=== PATIENT | male | born 1975 | race Caucasian/White ===

== ENCOUNTER → 2021-07-17 | Outpatient (CLI) | payer MEDICARE, OTHER ==
[2021-07-17 14:47] LABS: HEMOGLOBIN 14.4 gm/dl (14.0-17.5); RED BLOOD COUNT 4.53 M/UL (4.20-5.50); WHITE BLOOD COUNT 7.1 K/UL (4.5-11.0)
[2021-07-18 07:12] LABS: A/G RATIO 1.2 (1.2-2.2); BILIRUBIN, TOTAL 0.3 mg/dL (0.0-1.2); CALCIUM, SERUM 8.9 mg/dL (8.7-10.2); CREATININE, SERUM 1.3 mg/dL (0.76-1.27); GLOBULIN, TOTAL 3.3 g/dL (1.5-4.5); POTASSIUM, SERUM 4.1 mmol/L (3.5-5.2); PROTEIN, TOTAL, SERUM 7.4 g/dL (6.0-8.5)
[2021-07-18 08:15] LABS: TSH 1.32 uIU/mL (0.450-4.500)
== END ==
LOC: LAB 13:45
PROVIDERS: Family Medicine
DX: E55.9 Vitamin D deficiency, unspecified (principal); E03.9 Hypothyroidism, unspecified; S20.02XA Contusion of left breast, initial encounter; S22.42XA Multiple fractures of ribs, left side, initial encounter for closed fracture
CPT/HCPCS: 36415; 71101; 80053; 84443; 85025

== ENCOUNTER → 2021-12-29 | Outpatient (CLI) | payer MEDICARE, OTHER ==
[2021-12-29 10:41] LABS: RED BLOOD COUNT 3.78 M/UL (4.20-5.50)
== END ==
LOC: LAB 10:06
PROVIDERS: Family Medicine
DX: E03.9 Hypothyroidism, unspecified (principal); M10.9 Gout, unspecified
CPT/HCPCS: 36415; 80053; 84443; 84550; 85025

== ENCOUNTER 2022-01-27 19:45 | Inpatient (IN) | payer MEDICARE, OTHER ==
[~2022-01-27] VITALS: Ht 154.9 cm; Wt 74.8 kg
[2022-01-27 20:25] LABS: HEMOGLOBIN 12.5 gm/dl (14.0-17.5); RED BLOOD COUNT 3.9 M/UL (4.20-5.50)
[2022-01-28 04:35] LABS: HEMOGLOBIN 11.3 gm/dl (14.0-17.5); RED BLOOD COUNT 3.53 M/UL (4.20-5.50)
[2022-01-28 04:38] LABS: WHITE BLOOD COUNT 21.9 K/UL (4.5-11.0)
[2022-01-28] MEDS ORDERED: ASPIRIN EC81 MG PO (04:41)
[2022-01-28] MEDS ORDERED: ALL DAY ALLERGY10 M2 PO (04:42)
[2022-01-28] MEDS ORDERED: VITAMIN D325 MC6 PO (04:43)
[2022-01-28] MEDS ORDERED: B-12500 MCG PO (04:45)
[2022-01-28] MEDS ORDERED: DEPAKOTE ER500 MG PO (04:45)
[2022-01-28] MEDS ORDERED: DRISDOL1250 MCG PO (04:47)
[2022-01-28] MEDS ORDERED: LEXAPRO10 MG PO (04:47)
[2022-01-28] MEDS ORDERED: NEXIUM40 MG PO (04:47)
[2022-01-28] MEDS ORDERED: FLONASE 0.05% N16 GM (04:48)
[2022-01-28] MEDS ORDERED: SYNTHROID125 MCG PO (04:48)
[2022-01-28] MEDS ORDERED: METOPROLOL SUCC25 MG PO (04:50)
[2022-01-28] MEDS ORDERED: SEROQUEL100 MG PO (04:51)
[2022-01-28] MEDS ORDERED: LYRICA100 MG PO (04:51)
[2022-01-28] MEDS ORDERED: OMEGA 3 1,0001 EACH PO (04:51)
[2022-01-28] MEDS ORDERED: ULTRAM50 MG PO (04:52)
[2022-01-28] MEDS ORDERED: LORATADINE10 MG PO (10:33)
[2022-01-28] MEDS ORDERED: ALBUTEROL2.5 MG/3 M INH (10:37)
[2022-01-29 06:14] LABS: HEMOGLOBIN 9.8 gm/dl (14.0-17.5)
[2022-01-29 06:16] LABS: RED BLOOD COUNT 3.08 M/UL (4.20-5.50); WHITE BLOOD COUNT 9.5 K/UL (4.5-11.0)
[2022-01-30 06:59] LABS: HEMOGLOBIN 9.5 gm/dl (14.0-17.5); RED BLOOD COUNT 2.98 M/UL (4.20-5.50); WHITE BLOOD COUNT 10.1 K/UL (4.5-11.0)
[2022-01-30 07:25] LABS: BUN/CREATININE RATIO 11 (0-10)
[2022-01-31 07:08] LABS: HEMOGLOBIN 10.5 gm/dl (14.0-17.5)
[2022-01-31 07:10] LABS: RED BLOOD COUNT 3.34 M/UL (4.20-5.50); WHITE BLOOD COUNT 7.2 K/UL (4.5-11.0)
[2022-01-31 07:37] LABS: BUN/CREATININE RATIO 10 (0-10)
[2022-02-01 10:05] LABS: BUN/CREATININE RATIO 14 (0-10)
[2022-02-02 07:00] LABS: HEMOGLOBIN 11.6 gm/dl (14.0-17.5); RED BLOOD COUNT 3.63 M/UL (4.20-5.50); WHITE BLOOD COUNT 6.9 K/UL (4.5-11.0)
[2022-02-02 07:32] LABS: BUN/CREATININE RATIO 14 (0-10)
--- NOTE | 2022-02-02 09:42 | NUR ---
PATIENTS O2 SATURATION IS 86% ON ROOM AIR.
[2022-02-02] MEDS ORDERED: BUDESONIDE0.5 MG/2 M NEB (11:11)
[2022-02-02] MEDS ORDERED: POTASSIUM20 MEQ/15 PO (11:11)
[2022-02-02] MEDS ORDERED: LOPRESSOR 25 MG25 MG PO (11:11)
[2022-02-02] MEDS ORDERED: HEMATEX100 MG/5 M PO (11:11)
[2022-02-02] MEDS ORDERED: LASIX40 MG PO (11:11)
--- NOTE | 2022-02-02 15:44 | NUR ---
ATTEMPTED TO CALL REPORT TO [facility]. LEFT VOICEMAIL FOR HALEY SOTOMAYOR TO CALL BACK.
== END 2022-02-02 14:29 | disposition home health service (06) | DRG 871 ==
LOC: ER1 19:45 → CDU 22:55 → PROG CARE 22:55
PROVIDERS: Internal Medicine; Internal Medicine Infectious Disease; Physician Assistant; ADMIT Internal Medicine
PROC: 3E03329 Introduction of Other Anti-infective into Peripheral Vein, Percutaneous Approach (ICD-10-PCS; principal; 2022-01-28)
PROC: 5A0935A Assistance with Respiratory Ventilation, Less than 24 Consecutive Hours, High Flow/Velocity Cannula (ICD-10-PCS; 2022-01-28)
PROC: 5A0945A Assistance with Respiratory Ventilation, 24-96 Consecutive Hours, High Flow/Velocity Cannula (ICD-10-PCS; 2022-01-29)
DX: A41.9 Sepsis, unspecified organism (principal); I21.A1 Myocardial infarction type 2; J18.9 Pneumonia, unspecified organism; R65.21 Severe sepsis with septic shock; J69.0 Pneumonitis due to inhalation of food and vomit; J96.01 Acute respiratory failure with hypoxia; J96.02 Acute respiratory failure with hypercapnia; I50.33 Acute on chronic diastolic (congestive) heart failure; N17.9 Acute kidney failure, unspecified; I38 Endocarditis, valve unspecified; E03.9 Hypothyroidism, unspecified; F41.9 Anxiety disorder, unspecified; Z20.822 Contact with and (suspected) exposure to COVID-19; E86.0 Dehydration; I49.5 Sick sinus syndrome; F32.A Depression, unspecified; I11.0 Hypertensive heart disease with heart failure; D75.89 Other specified diseases of blood and blood-forming organs; I08.1 Rheumatic disorders of both mitral and tricuspid valves; K21.9 Gastro-esophageal reflux disease without esophagitis; I27.20 Pulmonary hypertension, unspecified; E88.09 Other disorders of plasma-protein metabolism, not elsewhere classified; Z98.890 Other specified postprocedural states; Z82.49 Family history of ischemic heart disease and other diseases of the circulatory system; Z88.8 Allergy status to other drugs, medicaments and biological substances; Q90.9 Down syndrome, unspecified; Z95.810 Presence of automatic (implantable) cardiac defibrillator
CPT/HCPCS: ECHO; 0240U; 36415; 36600; 71045; 80048; 80053; 80202; 81001; 82272; 82550; 82553; 82728; 82803; 83540; 83550; 83605; 83690; 83880; 84443; 84484; 85025; 85027; 86140; 87040; 87086; 93005; 93306; 94640; 94664; 94760; 96361; 96365; 96368; 96375; 99285; J1120; J1644; J1756; J1940; J2185; J2270; J2405; J2543; J3370; J7030; J7070; Q9967